=== PATIENT | female | born 1990 ===

== ENCOUNTER 2021-09-07 22:19 | Emergency (ER) | payer SELFPAY ==
[2021-09-07 23:16] VITALS: BP 140/75; PULSE 87; RESP 18; TEMP 36.6; O2SAT 96; BMI 35.2
== END 2021-09-08 03:04 | disposition left against medical advice (07) ==
PROVIDERS: Emergency Provider Emergency Medicine
DX: J45.909 Unspecified asthma, uncomplicated (principal)
CPT/HCPCS: 99281